=== PATIENT | female | born 1990 | race Caucasian/White ===

== ENCOUNTER 2017-03-15 13:51 | Emergency (ER) | payer OTHER ==
--- NOTE | 2017-03-15 15:52 | ED ORDER SUMMARY ---
..... Patient: ALPHONSO DONNELLY OrderSheet [facility] VisitID: [id number] [address] [place] [address] 26y, F Registration Date/Time: 03/15/2017 ORDER SHEET Weight: 144.8 kg (stated) Allergies: Sertraline GENERAL ORDERS: MEDICATION ORDERS: Dilaudid IM 1 mg (HIGH ALERT MEDICATION, NOW) (15:15 03/15/2017 HBivens A.R.N.P.) (Ack 15:29 KPage-Kuchan R.N.) (15:36 KPage-Kuchan R.N.) Zofran ODT PO 4 mg (NOW) (15:15 03/15/2017 HBivens A.R.N.P.) (Ack 15:29 KPage-Kuchan R.N.) (15:36 KPage-Kuchan R.N.) IV FLUIDS: ORDER SHEET NOTES: [Electronically signed by Angela Grider A.R.N.P. (17:19 03/15/2017)] [Electronically signed by Cheryl Reyes R.N. (17:50 03/15/2017)] [Electronically locked/signed by Cheryl Reyes R.N. (17:50 03/15/2017)]
--- NOTE | 2017-03-15 15:52 | ED NURSING NOTES ---
Clinical Report - Nurses [facility] [address] [place] [address] 03/15/2017 13:54 Patient: ALPHONSO DONNELLY TRIAGE Triage time 14:Mar 15 2017. Acuity: LEVEL 4. Chief Complaint: BACK PAIN and (pt reports low back pain since yesterday, pt "I was on the toilet pooping and turned and I coughed and it was this huge spike of pain to the right side of my spine"). Alert. No acute distress. SEPSIS SCREEN: Sepsis Screen. Negative (no infection suspected/documented). MI COMA SCORE: Mi Coma Scale: 15- eyes open spontaneously (4); best verbal response- oriented x 4 (5); best motor response- obeys commands (6). --14:35 Chreyl Reyes R.N. 14:23 03/15/17. BP: 143/86 taken on the left arm, while lying. HR: 87. RR: 19. O2 saturation: 100%. Temp: 98.7 F. Pain level now: 08/16. --14:35 Cheryl Reyes R.N. Weight: 144.8 kg stated. Height/Length: 70 inches Per Patient. BMI: 45.8. --14:30 Cheryl Reyes R.N. Medications Cyclobenzaprine HCl Oral. --14:27 Cheryl Reyes R.N. Cymbalta Oral. --14:27 Cheryl Reyes R.N. BusPIRone HCl Oral. --14:27 Cheryl Reyes R.N. Promethazine HCl Oral. --14:27 Cheryl Reyes R.N. Sprintec 28 Oral. --14:28 Cheryl Reyes R.N. ClonazePAM Oral. --14:28 Cheryl Reyes R.N. Allergies Sertraline. --14:26 Cheryl Reyes R.N. History Historian: patient. This started yesterday. ( hx of herniated discs L5, 6,7). No history of recent trauma. 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 (naproxen sodium- last taken yesterday, nothing today). PAST MEDICAL HX: Tetanus status: up-to-date. Immunizations: up-to-date. Last normal menstrual period- 2 weeks ago. SOCIAL HX: Never smoker. Occasional alcohol use. History of drug use: marijuana. No infectious disease exposure. ABUSE ASSESSMENT: No report of abuse. SELF HARM ASSESSMENT: A self harm assessment was performed. The patient answered "no" to the question "Have you recently felt down, depressed, or hopeless?", "Have you noticed less interest or pleasure in doing things?", "Do you have thoughts of harming or killing yourself?", "Are you here because you tried to hurt yourself?", "Have you ever tried to hurt yourself before today?", "Have you recently had thoughts about harming or killing others?" and "Do you have any dangerous items in your possession?". FALL RISK ASSESSMENT: Fall risk assessment completed. No fall risk identified. NUTRITIONAL RISK ASSESSMENT: The nutritional risk assessment revealed no deficiencies. FUNCTIONAL ASSESSMENT: Functional assessment: no impairments noted. LEARNING NEEDS ASSESSMENT: The learning needs assessment revealed no barriers. SKIN INTEGRITY ASSESSMENT: Skin integrity risk assessment completed. No skin integrity risk identified. --14:35 Cheryl Reyes R.N. PROBLEMS: PTSD. Polycystic Ovary Disease. Depression. --14:28 Cheryl Reyes R.N. ADDITIONAL SURGERIES: Oral surgery. --14:28 Cheryl Reyes R.N. Interventions ID and allergy band on patient. To treatment room. --14:35 Cheryl Reyes R.N. PHYSICAL ASSESSMENT To room via wheelchair. Patient gowned. GENERAL / NEURO / PSYCH: Alert. Oriented X 4. Appears in no acute distress. RESPIRATORY: Respirations not labored. Breath sounds within normal limits. CVS: Capillary refill less than 2 seconds. GI / : Abdomen soft and nontender. EXTREMITIES: Sensation intact in extremities. ROM of extremities within normal limits. BACK: ( co pain to low back that started yesterday, hx of same). Normal inspection of the neck and back. --14:36 Cheryl Reyes R.N. NURSING PROGRESS NOTES Cold pack applied to back (ice pack). Patient gowned. Head of bed elevated. Reassurance given. Patient identifiers checked. Call light placed in reach. Side rails up x 1. Bed placed in lowest position. Brakes of bed on. Patient ready for evaluation- chart flagged. --14:36 Cheryl Reyes R.N. 15:36 03/15/2017 Dilaudid (HYDROmorphone HCl PF) IM 1 mg given. Given in the right gluteus erin. Allergies verified, confirmed 5 rights and sedative warning given to the patient. --15:36 Cheryl Reyes R.N. 15:36 03/15/2017 Zofran ODT (Ondansetron) PO 4 mg given. Allergies verified and confirmed 5 rights. --15:36 Cheryl Reyes R.N. ( pt reports "way better" pain down from 08/16 to a 410). --16:06 Cheryl Reyes R.N. 16:06 03/15/17. Pain level now 02/14. --16:06 Cheryl Reyes R.N. Reassessment after medication administered. She has had no adverse reaction. Overall patient status is improved- she states feels better. --16:06 Cheryl Reyes R.N. DISPOSITION / DISCHARGE No learning barriers present. Discharge instructions provided and reviewed with the patient and spouse. Reviewed medication(s). Patient verbalized understanding. Written instructions provided in Latvian. The patient was discharged by the nurse practitioner. She was discharged home and accompanied by spouse and director loss prevention. She left the Emergency Department ambulatory and via private vehicle. Spouse driving. --16:10 Cheryl Reyes R.N. 16:09 03/15/17. BP: 131/71. HR: 84. RR: 17. O2 saturation: 99%. Temp: 98.1 F. Pain level now: 02/14. --16:10 Cheryl Reyes R.N. Departure time: 1614. --16:15 Cheryl Reyes R.N. Locked/Released at 03/15/2017 17:50 by Cheryl Reyes R.N.
--- NOTE | 2017-03-15 15:52 | ED ORDER SUMMARY ---
..... Patient: ALPHONSO DONNELLY OrderSheet [facility] VisitID: [id number] [address] [place] [address] 26y, F Registration Date/Time: 03/15/2017 ORDER SHEET Weight: 144.8 kg (stated) Allergies: Sertraline GENERAL ORDERS: MEDICATION ORDERS: Dilaudid IM 1 mg (HIGH ALERT MEDICATION, NOW) (15:15 03/15/2017 HBivens A.R.N.P.) (Ack 15:29 KPage-Kuchan R.N.) (15:36 KPage-Kuchan R.N.) Zofran ODT PO 4 mg (NOW) (15:15 03/15/2017 HBivens A.R.N.P.) (Ack 15:29 KPage-Kuchan R.N.) (15:36 KPage-Kuchan R.N.) IV FLUIDS: ORDER SHEET NOTES: [Electronically signed by Angela Grider A.R.N.P. (17:19 03/15/2017)] [Electronically signed by Cheryl Reyes R.N. (17:50 03/15/2017)] [Electronically locked/signed by Cheryl Reyes R.N. (17:50 03/15/2017)]
--- NOTE | 2017-03-15 15:52 | ED CLINICAL REPORT ---
Clinical Report - Physicians/Mid Levels [facility] [address] [place] [address] 03/15/2017 13:54 Patient: ALPHONSO DONNELLY Time Seen: 14:27; initial patient contact, initial documentation, patient care assumed. Arrived- By private vehicle. Historian- patient and family. HISTORY OF PRESENT ILLNESS Chief Complaint: BACK PAIN. It is described as being severe. It is described as being in the area of the upper lumbar spine, mid lumbar spine, lower lumbar spine, right upper lumbar spine and right mid lumbar spine. It is described as being in the area of the right flank, right lower lumbar spine, right SI joint and right gluteus and radiating to the right hip and thigh. The quality is noted to be "pain" and similar to prior episodes. Modifying factors- worsened by walking, rotation of the body to the right or left, bending over or lifting. Not relieved by anything. Onset was yesterday and it is still present. No bladder dysfunction, bowel dysfunction, sensory loss or motor loss. Patient notes the possibility of an injury but denies injury to the head or neck. Mechanism of injury- she was turning (sitting on toilet and turned, felt pain in back). Occurred at home. No other injury. Similar symptoms previously: Chronically, as bad. Recent medical care: Not recently seen/assessed. REVIEW OF SYSTEMS No fever, difficulty with urination, urinary frequency, hematuria or difficulty breathing. No chest pain. All systems otherwise negative, except as recorded above. PAST HISTORY See nurses notes. The patient has had prior back pain. PROBLEMS: PTSD. Polycystic Ovary Disease. Depression. --14:28 Page-Cheryl Rivera RJavier. ADDITIONAL SURGERIES: Oral surgery. --14:28 Cheryl Reyes RJavier. SOCIAL HISTORY Never smoker. Occasional alcohol use. History of occasional drug use: marijuana. No recent travel. Is a local resident. FAMILY HISTORY Negative. ADDITIONAL NOTES The nursing notes have been reviewed with agreement regarding the chief complaint, HPI, ROS, PMH and patient medications and allergies. PHYSICAL EXAM Vital Signs: 03/15/2017 14:23 BP: 143/86. HR: 87. RR: 19. O2 saturation: 100%. Temp: 98.7 F. Pain level now: 08/16. Have been reviewed as normal and appear to be correct. Appearance: Alert. No acute distress. Neck: Normal inspection. Neck nontender. Painless ROM. CVS: Heart sounds normal. Pulses normal. Respiratory: No respiratory distress. Breath sounds normal. Abdomen: No visible injury. Soft and nontender. Moderately obese. Back: Normal inspection. No tenderness. Painless ROM. Skin: Skin warm and dry. Normal skin color. No rash. Normal skin turgor. Extremities: Extremities exhibit normal ROM. Extremities nontender. Neuro: Oriented X 3. Mood/affect normal. No motor deficit. No sensory deficit. PROGRESS AND PROCEDURES Patient and family counseled in person regarding the patient's stable condition and diagnosis. Differential Diagnosis: I considered Musculo-skeletal strain, contusion, retroperitoneal hematoma, disk protrusion, vertebral fracture, facet syndrome, sacroiliac joint strain, sciatica, osteoarthritis, lumbar spondylosis, spinal stenosis, ankylosing spondylitis, sacroiliac joint inflammation, pyelonephritis, pneumonia and ureterolithiasis as a possible cause of back pain in this patient. This is a partial list of diagnoses considered. (substance abuse). Above considerations are based on history, physical exam and reassessment. Differential diagnosis was discussed with patient and patient's family. Disposition: Discharged home in good and improved condition (15:52). Condition: good and stable. CLINICAL IMPRESSION Chronic lumbar strain. INSTRUCTIONS Warnings: GENERAL WARNINGS: Return or contact your physician immediately if your condition worsens or changes unexpectedly, if not improving as expected, or if other problems arise. SPECIFICALLY, return if you develop numbness or incontinence of urine (loss of bladder control). Prescription Medications: Ultram 50 mg tablets: take 1-2 orally every 6 hours as needed for pain. Dispense twenty (20). No refills. Substitution is permissible. Follow-up: Follow up with your doctor in about three days even if well. Call for an appointment. Summary of care provided to patient. Understanding of the discharge instructions verbalized by patient. (Electronically signed by Angela Grider A.R.N.P. 03/15/2017 17:19)
--- NOTE | 2017-03-15 15:52 | ED NURSING NOTES ---
Clinical Report - Nurses [facility] [address] [place] [address] 03/15/2017 13:54 Patient: ALPHONSO DONNELLY TRIAGE Triage time 14:Mar 15 2017. Acuity: LEVEL 4. Chief Complaint: BACK PAIN and (pt reports low back pain since yesterday, pt "I was on the toilet pooping and turned and I coughed and it was this huge spike of pain to the right side of my spine"). Alert. No acute distress. SEPSIS SCREEN: Sepsis Screen. Negative (no infection suspected/documented). MI COMA SCORE: Mi Coma Scale: 15- eyes open spontaneously (4); best verbal response- oriented x 4 (5); best motor response- obeys commands (6). --14:35 Cheryl Reyes R.N. 14:23 03/15/17. BP: 143/86 taken on the left arm, while lying. HR: 87. RR: 19. O2 saturation: 100%. Temp: 98.7 F. Pain level now: 08/16. --14:35 Cheryl Reyes R.N. Weight: 144.8 kg stated. Height/Length: 70 inches Per Patient. BMI: 45.8. --14:30 Cheryl Reyes R.N. Medications Cyclobenzaprine HCl Oral. --14:27 Cheryl Reyes R.N. Cymbalta Oral. --14:27 Cheryl Reyes R.N. BusPIRone HCl Oral. --14:27 Cheryl Reyes R.N. Promethazine HCl Oral. --14:27 Cheryl Reyes R.N. Sprintec 28 Oral. --14:28 Cheryl Reyes R.N. ClonazePAM Oral. --14:28 Cheryl Reyes R.N. Allergies Sertraline. --14:26 Cheryl Reyes R.N. History Historian: patient. This started yesterday. ( hx of herniated discs L5, 6,7). No history of recent trauma. 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 (naproxen sodium- last taken yesterday, nothing today). PAST MEDICAL HX: Tetanus status: up-to-date. Immunizations: up-to-date. Last normal menstrual period- 2 weeks ago. SOCIAL HX: Never smoker. Occasional alcohol use. History of drug use: marijuana. No infectious disease exposure. ABUSE ASSESSMENT: No report of abuse. SELF HARM ASSESSMENT: A self harm assessment was performed. The patient answered "no" to the question "Have you recently felt down, depressed, or hopeless?", "Have you noticed less interest or pleasure in doing things?", "Do you have thoughts of harming or killing yourself?", "Are you here because you tried to hurt yourself?", "Have you ever tried to hurt yourself before today?", "Have you recently had thoughts about harming or killing others?" and "Do you have any dangerous items in your possession?". FALL RISK ASSESSMENT: Fall risk assessment completed. No fall risk identified. NUTRITIONAL RISK ASSESSMENT: The nutritional risk assessment revealed no deficiencies. FUNCTIONAL ASSESSMENT: Functional assessment: no impairments noted. LEARNING NEEDS ASSESSMENT: The learning needs assessment revealed no barriers. SKIN INTEGRITY ASSESSMENT: Skin integrity risk assessment completed. No skin integrity risk identified. --14:35 Cheryl Reyes R.N. PROBLEMS: PTSD. Polycystic Ovary Disease. Depression. --14:28 Cheryl Reyes R.N. ADDITIONAL SURGERIES: Oral surgery. --14:28 Cheryl Reyes R.N. Interventions ID and allergy band on patient. To treatment room. --14:35 Cheryl Reyes R.N. PHYSICAL ASSESSMENT To room via wheelchair. Patient gowned. GENERAL / NEURO / PSYCH: Alert. Oriented X 4. Appears in no acute distress. RESPIRATORY: Respirations not labored. Breath sounds within normal limits. CVS: Capillary refill less than 2 seconds. GI / : Abdomen soft and nontender. EXTREMITIES: Sensation intact in extremities. ROM of extremities within normal limits. BACK: ( co pain to low back that started yesterday, hx of same). Normal inspection of the neck and back. --14:36 Cheryl Reyes R.N. NURSING PROGRESS NOTES Cold pack applied to back (ice pack). Patient gowned. Head of bed elevated. Reassurance given. Patient identifiers checked. Call light placed in reach. Side rails up x 1. Bed placed in lowest position. Brakes of bed on. Patient ready for evaluation- chart flagged. --14:36 Cheryl Reyes R.N. 15:36 03/15/2017 Dilaudid (HYDROmorphone HCl PF) IM 1 mg given. Given in the right gluteus erin. Allergies verified, confirmed 5 rights and sedative warning given to the patient. --15:36 Cheryl Reyes R.N. 15:36 03/15/2017 Zofran ODT (Ondansetron) PO 4 mg given. Allergies verified and confirmed 5 rights. --15:36 Cheryl Reyes R.N. ( pt reports "way better" pain down from 08/16 to a 410). --16:06 Cheryl Reyes R.N. 16:06 03/15/17. Pain level now 02/14. --16:06 Cheryl Reyes R.N. Reassessment after medication administered. She has had no adverse reaction. Overall patient status is improved- she states feels better. --16:06 Cheryl Reyes R.N. DISPOSITION / DISCHARGE No learning barriers present. Discharge instructions provided and reviewed with the patient and spouse. Reviewed medication(s). Patient verbalized understanding. Written instructions provided in Romansh. The patient was discharged by the nurse practitioner. She was discharged home and accompanied by spouse and reverberatory furnace operator. She left the Emergency Department ambulatory and via private vehicle. Spouse driving. --16:10 Cheryl Reyes R.N. 16:09 03/15/17. BP: 131/71. HR: 84. RR: 17. O2 saturation: 99%. Temp: 98.1 F. Pain level now: 02/14. --16:10 Cheryl Reyes R.N. Departure time: 1614. --16:15 Cheryl Reyes R.N. Locked/Released at 03/15/2017 17:50 by Cheryl Reyes R.N.
--- NOTE | 2017-03-15 17:51 | ED MAR SUMMARY ---
..... Medication Administration Record [facility] [address] [place] [address] Patient: ALPHONSO DONNELLY Visit ID: [id number] 26y, F Weight: 144.8 kg Height/Length: 70 in BMI: 45.8 ALLERGIES: Sertraline Given 15:36 03/15/2017 Cheryl Reyes RCelestino Medication Administered: DILAUDID [IM] (HYDROMORPHONE HCL PF), Dose: 1 mg IM. Medication Ordered: Dilaudid IM 1 mg (HIGH ALERT MEDICATION, NOW). Given 15:36 03/15/2017 Cheryl Reyes, RCelestino Medication Administered: ZOFRAN ODT [PO] (ONDANSETRON), Dose: 4 mg PO. Medication Ordered: Zofran ODT PO 4 mg (NOW).
--- NOTE | 2017-03-15 17:51 | ED MED RECONCILIATION SUMMARY ---
Patient: ALPHONSO DONNELLY Medication Reconciliation Report [facility] VisitID: [id number] [address] [place] [address] 26y, F Registration Date/Time: 03/15/2017 Weight: 144.8 kg Height/Length: 70 in. BMI: 45.8 ALLERGIES: Sertraline The patient's Home Medications are listed below: THE FOLLOWING MEDICATIONS NEED TO BE RECONCILED: BusPIRone HCl Oral ClonazePAM Oral Cyclobenzaprine HCl Oral Cymbalta Oral Promethazine HCl Oral Sprintec 28 Oral The source(s) of the original Home Medication information: Not obtained. The following Medications were given to the patient in the Emergency Department: Dilaudid [IM] IM 1 mg, administered: 03/15/2017 3:36:00 PM Zofran ODT [PO] PO 4 mg, administered: 03/15/2017 3:36:00 PM The following Medications were prescribed to the patient: Ultram 50 mg tablets: take 1-2 orally every 6 hours as needed for pain. Dispense twenty (20). No refills. Substitution is permissible. -- Angela Grider A.R.N.P.
--- NOTE | 2017-03-15 17:51 | ED MED RECONCILIATION SUMMARY ---
Patient: ALPHONSO DONNELLY Medication Reconciliation Report [facility] VisitID: [id number] [address] [place] [address] 26y, F Registration Date/Time: 03/15/2017 Weight: 144.8 kg Height/Length: 70 in. BMI: 45.8 ALLERGIES: Sertraline The patient's Home Medications are listed below: THE FOLLOWING MEDICATIONS NEED TO BE RECONCILED: BusPIRone HCl Oral ClonazePAM Oral Cyclobenzaprine HCl Oral Cymbalta Oral Promethazine HCl Oral Sprintec 28 Oral The source(s) of the original Home Medication information: Not obtained. The following Medications were given to the patient in the Emergency Department: Dilaudid [IM] IM 1 mg, administered: 03/15/2017 3:36:00 PM Zofran ODT [PO] PO 4 mg, administered: 03/15/2017 3:36:00 PM The following Medications were prescribed to the patient: Ultram 50 mg tablets: take 1-2 orally every 6 hours as needed for pain. Dispense twenty (20). No refills. Substitution is permissible. -- Angela Grider A.R.N.P.
--- NOTE | 2017-03-15 17:51 | ED MAR SUMMARY ---
..... Medication Administration Record [facility] [address] [place] [address] Patient: ALPHONSO DONNELLY Visit ID: [id number] 26y, F Weight: 144.8 kg Height/Length: 70 in BMI: 45.8 ALLERGIES: Sertraline Given 15:36 03/15/2017 Cheryl Reyes RCelestino Medication Administered: DILAUDID [IM] (HYDROMORPHONE HCL PF), Dose: 1 mg IM. Medication Ordered: Dilaudid IM 1 mg (HIGH ALERT MEDICATION, NOW). Given 15:36 03/15/2017 Cheryl Reyes, RCelestino Medication Administered: ZOFRAN ODT [PO] (ONDANSETRON), Dose: 4 mg PO. Medication Ordered: Zofran ODT PO 4 mg (NOW).
--- NOTE | 2017-03-15 17:51 | ED DISCHARGE INSTRUCTIONS ---
Patient: ALPHONSO DONNELLY General Instructions [facility] VisitID: [id number] [place] [address] 26y, F Registration Date/Time: 03/15/2017 Chronic lumbar strain. INSTRUCTIONS Warnings: GENERAL WARNINGS: Return or contact your physician immediately if your condition worsens or changes unexpectedly, if not improving as expected, or if other problems arise. SPECIFICALLY, return if you develop numbness or incontinence of urine (loss of bladder control). Prescription Medications: Ultram 50 mg tablets: take 1-2 orally every 6 hours as needed for pain. Dispense twenty (20). No refills. Substitution is permissible. Follow-up: Follow up with your doctor in about three days even if well. Call for an appointment. Summary of care provided to patient. Understanding of the discharge instructions verbalized by patient. ADDITIONAL INFORMATION Back Pain [Acute Or Chronic] Back pain is usually caused by an injury to the muscles or ligaments of the spine. Sometimes the disks that separate each bone in the spine may bulge and cause pain by pressing on a nearby nerve. Back pain may also appear after a sudden twisting/bending force (such as in a car accident), after a simple awkward movement, or lifting something heavy with poor body positioning. In either case, muscle spasm is often present and adds to the pain. Acute back pain usually gets better in one to two weeks. Back pain related to disk disease, arthritis in the spinal joints or spinal stenosis (narrowing of the spinal canal) can become chronic and last for months or years. Unless you had a physical injury (for example, a car accident or fall) X-rays are usually not ordered for the initial evaluation of back pain. If pain continues and does not respond to medical treatment, x-rays and other tests may be performed at a later time. Home Care: You may need to stay in bed the first few days. But, as soon as possible, begin sitting or walking to avoid problems with prolonged bed rest (muscle weakness, worsening back stiffness and pain, blood clots in the legs). When in bed, try to find a position of comfort. A firm mattress is best. Try lying flat on your back with pillows under your knees. You can also try lying on your side with your knees bent up towards your chest and a pillow between your knees. Avoid prolonged sitting. This puts more stress on the lower back than standing or walking. During the first two days after injury, apply an ICE PACK to the painful area for 20 minutes every 2-4 hours. This will reduce swelling and pain. HEAT (hot shower, hot bath or heating pad) works well for muscle spasm. You can start with ice, then switch to heat after two days. Some patients feel best alternating ice and heat treatments. Use the one method that feels the best to you. You may use acetaminophen (Tylenol) or ibuprofen (Motrin, Advil) to control pain, unless another pain medicine was prescribed. [NOTE: If you have chronic liver or kidney disease or ever had a stomach ulcer or GI bleeding, talk with your doctor before using these medicines.] Be aware of safe lifting methods and do not lift anything over 15 pounds until all the pain is gone. Follow Up with your doctor or this facility if your symptoms do not start to improve after one week. Physical therapy may be needed. [NOTE: If X-rays were taken, they will be reviewed by a radiologist. You will be notified of any new findings that may affect your care.] Get Prompt Medical Attention if any of the following occur: Pain becomes worse or spreads to your legs Weakness or numbness in one or both legs Loss of bowel or bladder control Numbness in the groin or genital area Sciatica Sciatica ("Lumbar Radiculopathy") causes a pain that spreads from the lower back down into the buttock, hip and leg. Sometimes leg pain can occur without any back pain. Sciatica is due to irritation or pressure on a spinal nerve as it comes out of the spinal canal. This is most often due to a bulge or rupture of a nearby spinal disk (the cartilage cushion between each spinal bone), which presses on a nearby nerve. Other causes include spinal stenosis (narrowing of the spinal canal) and spasm of the pyriform muscle (a muscle in the buttocks that the sciatic nerve passes through). Sciatica may begin after a sudden twisting/bending force (such as in a car accident), or sometimes after a simple awkward movement. In either case, muscle spasm is commonly present and contributes to the pain. The diagnosis of sciatica is made from the symptoms and physical exam. Unless you had a physical injury (such as a car accident or fall), X-rays are usually not ordered for the initial evaluation of sciatica because the nerves and disks cannot be seen on an x-ray. If signs of a compressed nerve are present (for example, loss of tendon reflex or strength in the leg), an MRI (magnetic resonance imaging) scan will need to be scheduled as an outpatient. Most sciatica (80-90%) gets better with medicine, exercise, physical therapy. If symptoms continue after at least three months of medical treatment, surgery may be considered. Home Care: You may need to stay in bed the first few days. But, as soon as possible, begin sitting or walking to avoid problems with prolonged bed rest. When in bed, try to find a position of comfort. A firm mattress is best. Try lying flat on your back with pillows under your knees. You can also try lying on your side with your knees bent up towards your chest and a pillow between your knees. Avoid prolonged sitting. This puts more stress on the lower back than standing or walking. Some persons find relief with heat (hot shower, hot bath or heating pad) and massage, while others prefer cold packs (crushed or cubed ice in a plastic bag, wrapped in a towel). Try both and use the method that feels best for 20 minutes several times a day. You may use acetaminophen (Tylenol) or ibuprofen (Motrin, Advil) to control pain, unless another pain medicine was prescribed. [ NOTE: If you have chronic liver or kidney disease or ever had a stomach ulcer or GI bleeding, talk with your doctor before using these medicines.] Be aware of safe lifting methods and do not lift anything over 15 pounds until all the pain is gone. Follow Up with your doctor or this facility if your symptoms do not start to improve after one week. Physical therapy or further testing may be needed. [NOTE: If X-rays were taken, they will be reviewed by a radiologist. You will be notified of any new findings that may affect your care.] Get Prompt Medical Attention if any of the following occur: Pain becomes worse, not controlled by the prescribed medicine Weakness or numbness in one or both legs Numbness in the groin, genital area Loss of bowel or bladder control Tramadol Hydrochloride Oral tablet What is this medicine? TRAMADOL (TRA ma dole) is a pain reliever. It is used to treat moderate to severe pain in adults. How should I use this medicine? Take this medicine by mouth with a full glass of water. Follow the directions on the prescription label. If the medicine upsets your stomach, take it with food or milk. Do not take more medicine than you are told to take. Talk to your marketing project specialist regarding the use of this medicine in children. Special care may be needed. What side effects may I notice from receiving this medicine? Side effects that you should report to your doctor or health career technical counselor as soon as possible: allergic reactions like skin rash, itching or hives, swelling of the face, lips, or tongue breathing difficulties, wheezing confusion itching light headedness or fainting spells redness, blistering, peeling or loosening of the skin, including inside the mouth seizures Side effects that usually do not require medical attention (report to your doctor or health career technical counselor if they continue or are bothersome): constipation dizziness drowsiness headache nausea, vomiting What may interact with this medicine? Do not take this medicine with any of the following medications: MAOIs like Carbex, Eldepryl, Marplan, Nardil, and Parnate This medicine may also interact with the following medications: alcohol or medicines that contain alcohol antihistamines benzodiazepines bupropion carbamazepine or oxcarbazepine clozapine cyclobenzaprine digoxin furazolidone linezolid medicines for depression, anxiety, or psychotic disturbances medicines for migraine headache like almotriptan, eletriptan, frovatriptan, naratriptan, rizatriptan, sumatriptan, zolmitriptan medicines for pain like pentazocine, buprenorphine, butorphanol, meperidine, nalbuphine, and propoxyphene medicines for sleep muscle relaxants naltrexone phenobarbital phenothiazines like perphenazine, thioridazine, chlorpromazine, mesoridazine, fluphenazine, prochlorperazine, promazine, and trifluoperazine procarbazine warfarin What if I miss a dose? If you miss a dose, take it as soon as you can. If it is almost time for your next dose, take only that dose. Do not take double or extra doses. Where should I keep my medicine? Keep out of the reach of children. Store at room temperature between 15 and 30 degrees C (59 and 86 degrees F). Keep container tightly closed. Throw away any unused medicine after the expiration date. What should I tell my health care provider before I take this medicine? They need to know if you have any of these conditions: brain tumor depression drug abuse or addiction head injury if you frequently drink alcohol containing drinks kidney disease or trouble passing urine liver disease lung disease, asthma, or breathing problems seizures or epilepsy suicidal thoughts, plans, or attempt; a previous suicide attempt by you or a family member an unusual or allergic reaction to tramadol, codeine, other medicines, foods, dyes, or preservatives or trying to get breast-feeding What should I watch for while using this medicine? Tell your doctor or health career technical counselor if your pain does not go away, if it gets worse, or if you have new or a different type of pain. You may develop tolerance to the medicine. Tolerance means that you will need a higher dose of the medicine for pain relief. Tolerance is normal and is expected if you take this medicine for a long time. Do not suddenly stop taking your medicine because you may develop a severe reaction. Your body becomes used to the medicine. This does NOT mean you are addicted. Addiction is a behavior related to getting and using a drug for a non-medical reason. If you have pain, you have a medical reason to take pain medicine. Your doctor will tell you how much medicine to take. If your doctor wants you to stop the medicine, the dose will be slowly lowered over time to avoid any side effects. You may get drowsy or dizzy. Do not drive, use machinery, or do anything that needs mental alertness until you know how this medicine affects you. Do not stand or sit up quickly, especially if you are an older patient. This reduces the risk of dizzy or fainting spells. Alcohol can increase or decrease the effects of this medicine. Avoid alcoholic drinks. You may have constipation. Try to have a bowel movement at least every 2 to 3 days. If you do not have a bowel movement for 3 days, call your doctor or health career technical counselor. Your mouth may get dry. Chewing sugarless gum or sucking hard candy, and drinking plenty of water may help. Contact your doctor if the problem does not go away or is severe. You have been given the following additional information: Back Pain (Acute Or Chronic) Back Pain W/ Sciatica Tramadol Hydrochloride Oral tablet (Electronically signed by Angela Grider A.R.N.P. 03/15/2017 17:19)
== END 2017-03-15 16:14 | disposition home or self-care (01) ==
LOC: ED SRH 13:51
DX: S39.012A Strain of muscle, fascia and tendon of lower back, initial encounter (principal); X50.0XXA Overexertion from strenuous movement or load, initial encounter; Y93.9 Activity, unspecified; Y92.009 Unspecified place in unspecified non-institutional (private) residence as the place of occurrence of the external cause; Y99.9 Unspecified external cause status